=== PATIENT | female | born 1980 | race Caucasian/White ===

== ENCOUNTER 2016-07-22 19:28 | Emergency (ER) | payer OTHER ==
[~2016-07-22] VITALS: Ht 157.5 cm; Wt 119.4 kg
[2016-07-22] MEDS ORDERED: ONDANSETRON 2MG/ML, 2ML ONE (19:51)
[2016-07-22] MEDS ORDERED: FAMOTIDINE 20 MG/2 ML ONE (19:51)
[2016-07-22] MEDS ORDERED: FAMOTIDINE 20 MG/2 ML IVP ONE (20:00)
[2016-07-22] MEDS ORDERED: SODIUM CHLORIDE 0.9% 1,000ML IVBOLUS ONE (20:00)
[2016-07-22] MEDS ORDERED: ONDANSETRON 2MG/ML, 2ML IVPush ONE (20:00)
[2016-07-22 20:09] LABS: ASPARTATE AMINO TRANSFERASE 10 U/L (15-37); BLOOD UREA NITROGEN 12 mg/dL (7-18)
[2016-07-22 20:16] LABS: HEMOGLOBIN 15.1 g/dL (11.7-16.4)
[2016-07-22] MEDS ORDERED: SODIUM CHLORIDE FLUSH 10ML SYR IVF ONE (21:00)
[2016-07-22 21:15] VITALS: BP 135/75
== END 2016-07-22 21:16 | disposition home or self-care (01) ==
LOC: ED 20:43
DX: R11.2 Nausea with vomiting, unspecified (principal); E86.0 Dehydration
CPT/HCPCS: 36415; 80053; 83690; 84703; 85025; 96361; 96374; 96375; 99285; J2405; J7030; S0028

== ENCOUNTER 2017-06-30 05:08 | Emergency (ER) | payer OTHER ==
[~2017-06-30] VITALS: Ht 157.5 cm; Wt 106.5 kg
[2017-06-30 05:09] VITALS: BP 137/90
[2017-06-30] MEDS ORDERED: DEXAMETHASONE 4 MG TABLET ONE (05:54)
[2017-06-30] MEDS ORDERED: DEXAMETHASONE 4 MG TABLET PO ONE (06:00)
== END 2017-06-30 06:01 | disposition home or self-care (01) ==
LOC: ED 06:00
DX: J03.00 Acute streptococcal tonsillitis, unspecified (principal); F17.210 Nicotine dependence, cigarettes, uncomplicated
CPT/HCPCS: 99283

== ENCOUNTER 2017-10-15 14:17 | Emergency (ER) | payer OTHER ==
[~2017-10-15] VITALS: Ht 157.5 cm; Wt 107.4 kg
[2017-10-15 14:27] VITALS: BP 137/86
[2017-10-15] MEDS ORDERED: DEXAMETHASONE 4 MG TABLET PO ONE (15:30)
== END 2017-10-15 15:56 | disposition home or self-care (01) ==
LOC: ED 15:50
DX: J02.0 Streptococcal pharyngitis (principal); E11.9 Type 2 diabetes mellitus without complications; F12.90 Cannabis use, unspecified, uncomplicated
CPT/HCPCS: 99283

== ENCOUNTER 2018-06-28 07:35 | Emergency (ER) | payer OTHER ==
[~2018-06-28] VITALS: Ht 157.5 cm; Wt 113.3 kg
--- NOTE | 2018-06-28 07:53 | NUR ---
URINE COLLECTED, LABELED WITH PT., AND SENT TO LAB.
[2018-06-28 08:10] LABS: MICROSCOPIC INDICATED
--- NOTE | 2018-06-28 08:24 | NUR ---
PT AMBULATORY WITH STEADY GAIT TO ROOM
--- NOTE | 2018-06-28 08:54 | NUR ---
38 Y/O FEMALE PRESENTS TO ED WITH C/O LLQ ABDOMINAL PAIN. "I HAVE SOME LOWER LEFT QUADRANT BELLY PAIN. YESTERDAY I THREW UP ABOUT 5 TIMES. I GOT SENT HOME FROM WORK. I HAVEN'T THROWN UP TODAY, JUST FEEL NAUSEOUS." NO ACUTE DISTRESS NOTED. NO C/O D, TRAUMA, SYNCOPE, CP, SOB. PT PLACED ON CONT PULSE OX,NIBP.
[2018-06-28] MEDS ORDERED: MORPHINE SULFATE 4 MG/ML, 1ML IVPush PRN (09:00)
[2018-06-28] MEDS ORDERED: ONDANSETRON 2MG/ML, 2ML IVPush ONE (09:00)
[2018-06-28] MEDS ORDERED: SODIUM CHLORIDE FLUSH 10ML SYR IVF ONE (09:00)
[2018-06-28] MEDS ORDERED: MORPHINE SULFATE 4 MG/ML, 1ML ONE (09:05)
[2018-06-28] MEDS ORDERED: ONDANSETRON 2MG/ML, 2ML ONE (09:05)
--- NOTE | 2018-06-28 09:22 | NUR ---
pt medicated, to ct at this time
[2018-06-28 09:27] LABS: BASOPHILS # (AUTO) 0.03 x10^3/uL (0-0.1); BASOPHILS % (AUTO) 0 % (0-1); EOSINOPHILS % (AUTO) 3 % (1-7); LYMPHOCYTES # (AUTO) 2.23 x10^3/uL (1-3.4); LYMPHOCYTES % (AUTO) 35 % (22-44); MD NO; MEAN CORPUSCULAR HGB CONC 32.4 g/dL (32.4-35.8); MEAN CORPUSCULAR VOLUME 77.2 fL (80-100); MEAN PLATELET VOLUME 9.7 fL (7.4-10.4); MONOCYTES # (AUTO) 0.36 x10^3/uL (0.2-0.8); MONOCYTES % (AUTO) 6 % (2-9); NEUTROPHILS # (AUTO) 3.52 x10^3/uL (1.8-6.8); NEUTROPHILS % (AUTO) 56 % (42-75); PLATELET COUNT 199 x10^3/uL (130-400); RED BLOOD COUNT 5.41 x10^6/uL (3.82-5.3); RED CELL DISTRIBUTION WIDTH 17.2 % (9.6-15.2)
[2018-06-28 09:39] LABS: ALBUMIN 3.8 g/dL (3.4-5.0); ANION GAP 4 mmol/L (5-15); CALCIUM 8.4 mg/dL (8.5-10.1); CHLORIDE 109 mmol/L (98-107); CREATININE 0.79 mg/dL (0.55-1.02)
--- NOTE | 2018-06-28 09:40 | NUR ---
PT BACK FROM IMAGING.
[2018-06-28 10:25] VITALS: BP 137/71
--- NOTE | 2018-06-28 10:26 | NUR ---
PT RESTING ON GURNEY. NO ACURTE DISTRESS NOTED. PT STATES "SHE CAME IN AND SAID I WAS GOING HOME. I HAVE A UTI." NO NEEDS REQUESTED AT THIS TIME. PIV DISCONTINUED WITH TIP INTACT.
--- NOTE | 2018-06-28 10:39 | NUR ---
Patient/Caregiver given discharge instructions and they have confirmed that they understand the instructions. Patient ambulatory with steady gait. PT LEFT WITH ALL PERSONAL BELONGINGS.
== END 2018-06-28 10:41 | disposition home or self-care (01) ==
LOC: ED 10:35
DX: N30.00 Acute cystitis without hematuria (principal)
CPT/HCPCS: 36415; 76830; 80048; 81001; 82040; 84703; 85025; 96374; 96375; 99284; J2405

== ENCOUNTER 2020-07-06 20:58 | Emergency (ER) | payer OTHER ==
[~2020-07-06] VITALS: Ht 157.5 cm; Wt 129.0 kg
--- NOTE | 2020-07-06 21:23 | NUR ---
pt has dental pain x 3 days. pt states that wisdom teeth have rotted and fallen out of left side, top and bottom. pt states orajel not working. pt resting in chair, awaiting erp eval
[2020-07-06] MEDS ORDERED: ONDANSETRON ODT 4 MG ONE (21:49)
[2020-07-06] MEDS ORDERED: HYDROcodone/APAP 5/325 TABLET ONE (21:49)
--- NOTE | 2020-07-06 21:52 | NUR ---
pt medicated for pain per emar
[2020-07-06] MEDS ORDERED: ONDANSETRON ODT 4 MG PO ONE (22:00)
[2020-07-06] MEDS ORDERED: HYDROcodone/APAP 5/325 TABLET PO ONE (22:00)
[2020-07-06 22:13] VITALS: BP 142/94
== END 2020-07-06 22:25 | disposition home or self-care (01) ==
LOC: ED 21:59
DX: K04.7 Periapical abscess without sinus (principal)
CPT/HCPCS: 99283; Q0162

== ENCOUNTER 2020-12-28 20:16 | Emergency (ER) | payer OTHER ==
[~2020-12-28] VITALS: Ht 157.5 cm; Wt 129.7 kg
--- NOTE | 2020-12-28 20:31 | NUR ---
PT C/O OF BODYACHES, FEVER/CHILL, HEADACHE, SCRATCHY THROAT, AND VOMITTING ONCE PT STATES NO VACCINE, DENIES CP, SOB. ATTACHED TO MONITORS, FUADSChloé DAVE. AT BEDSIDE REPORTS BROTHER IN LAW HAVING COVID SYMPTOMS WELL. BED IN LOW, RAILS ENGAGED , CALL LIGHT ON LAP.
[2020-12-28] MEDS ORDERED: DEXAMETHASONE 4 MG TABLET ONE (20:39)
[2020-12-28] MEDS ORDERED: SODIUM CHLORIDE FLUSH 10ML SYR IVF ONE (21:00)
[2020-12-28] MEDS ORDERED: SODIUM CHLORIDE 0.9% 1,000ML IVBOLUS ONE (21:00)
[2020-12-28] MEDS ORDERED: DEXAMETHASONE 4 MG TABLET PO ONE (21:00)
[2020-12-28 22:25] VITALS: BP 140/90
--- NOTE | 2020-12-28 22:39 | NUR ---
Note undone in EDM - 12/28/20 at 2241 by [email or web address] pt parent c/o of pt cough, watery eyes, tossing and turning at night staying up tell 3am which is abnormal. also reporting stuffy and running nose. mom reports no change in diapers or appetite ermd at bedside. attached to monitors. vss. alejandro. pt on moms phone watching a show. bed in , railsd engaged, call light by pt.
--- NOTE | 2020-12-28 22:55 | NUR ---
Patient/Caregiver given discharge instructions and they have confirmed that they understand the instructions. Patient ambulatory with steady gait. NAD, all questions answered appropriately, denies additional needs at this time. No personal belongings left in room after discharge.
== END 2020-12-28 22:56 | disposition home or self-care (01) ==
LOC: ED 20:45
DX: U07.1 COVID-19 (principal); J06.9 Acute upper respiratory infection, unspecified; F17.210 Nicotine dependence, cigarettes, uncomplicated; R11.0 Nausea; I51.7 Cardiomegaly; E11.9 Type 2 diabetes mellitus without complications
CPT/HCPCS: 71045; 96360; 99284; 99406; J7030; U0003; U0005